=== PATIENT | female | born 1995 | race Caucasian/White ===

== ENCOUNTER 2016-05-11 21:55 | Emergency (ER) | payer BC ==
[2016-05-11 22:03] VITALS: BP 129/88; PULSE 90; RESP 16; TEMP 98.2; O2SAT 97
--- NOTE | 2016-05-11 22:29 | EDPHY ---
H & P Stated Complaint: nose injury, knee to nose, no LOC Time Seen by Provider: 05/11/16 22:08 HPI/ROS: Chief complaint: Nose injury HPI: 20-year-old female was at a trampoline park when she jumped in accidentally kneed herself in the nose. She had epistaxis which has since resolved. She has got tenderness over the bit bridge of her nose and feels that it is malaligned. She has not have any difficulty breathing. No prior injuries. She is not have a loss of consciousness. No neck pain. No numbness or tingling. Does not have any tooth pain. No vision changes. ROS: 10 point Review of Systems is negative except as noted in the HPI. Past medical history: None Medications: None Allergies: None Physical exam: Gen: Awake, Alert, No Distress HEENT: Nose: She has no nasal bony tenderness. There is some tenderness at the bone cartilaginous joint. There is asymmetrical swelling but no significant perceptible malalignment. She has dried blood in the nares but there is no active bleeding. There is no septal hematoma. Eyes: PERRLA, EOMI Mouth: Moist mucosa no maxillary or mandibular tenderness. No tenderness at the temporomandibular joints. Full range of motion. Neck: Supple, no JVD, nontender, full range of motion without pain Chest: nontender, lungs clear to auscultation Heart: S1, S2 normal, no murmur Abd: Soft, non-tender, no guarding Back: no CVA tenderness, no midline tenderness Ext: no edema, non-tender Skin: no rash Neuro: CN II-XII intact, Sensation grossly intact, Strength 5/5 in bilateral upper and lower extremities - Personal History Current Tetanus/Diphtheria Vaccine: Yes Current Tetanus Diphtheria and Acellular Pertussis (TDAP): Yes Tetanus Vaccine Date: 2012 - Medical/Surgical History Hx Asthma: No Hx Chronic Respiratory Disease: No Hx Diabetes: No Hx Cardiac Disease: No Hx Renal Disease: No Hx Cirrhosis: No Hx Alcoholism: No Hx HIV/AIDS: No Hx Splenectomy or Spleen Trauma: No 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 I have advised her that she will need to wait until the swelling goes down to evaluate whether it is malaligned. I will refer her to Ear Nose and Throat in at least a week for further evaluation she has concerns. Otherwise she will follow up with [facility]. Departure - Departure Disposition: Home, Routine, Self-Care Clinical Impression: Nose injury Condition: Good Instructions: Nasal Contusion (ED) Additional Instructions: Allow all the swelling to go down for at least a week. May apply ice every 15 minutes for every hour while awake. You may alternate ibuprofen with acetaminophen for pain. Return to the emergency department for increasing headache, nausea, vomiting, numbness, tingling, or any other concerns. If after a week or 2 you feel that your nose is deformed you may follow up with an ear nose and throat doctor for further evaluation. Referrals: NONE *PRIMARY CARE P,. [Primary Care Provider] - As per Instructions Eduarda James MD [Medical Doctor] - As per Instructions [facility] [Outside] - As per Instructions
== END 2016-05-11 22:30 | disposition home or self-care (01) ==
DX: S09.92XA Unspecified injury of nose, initial encounter (principal); W09.8XXA Fall on or from other playground equipment, initial encounter; Y92.830 Public park as the place of occurrence of the external cause; Y93.39 Activity, other involving climbing, rappelling and jumping off